=== PATIENT | female | born 1955 | race Caucasian/White ===

== ENCOUNTER → 2016-04-04 | Outpatient (REF) | payer OTHER ==
[2016-04-07 14:08] LABS: D001-IgE D pteronyssinus <0.10 kU/L (Class 0); E001-IgE Cat Epith/Dander < 0.10 kU/L (Class 0); E005-IgE Dog Dander < 0.10 kU/L (Class 0); G002-IgE Bermuda Grass < 0.10 kU/L (Class 0); G008-IgE Kentucky Bluegrass < 0.10 kU/L (Class 0); M001-IgE Penicillium chrysogen < 0.10 kU/L (Class 0); M002 IgE Cladosporium herbaru < 0.10 kU/L (Class 0); M003 IgE Aspergillus fumigatu < 0.10 kU/L (Class 0); M006-IgE Alternaria alternata < 0.10 kU/L (Class 0); T001-IgE Maple/Box Elder < 0.10 kU/L (Class 0); T003-IgE Common Silver Birch < 0.10 kU/L (Class 0); T007-IgE Oak, White < 0.10 kU/L (Class 0); T008-IgE Elm, American < 0.10 kU/L (Class 0); T015-IgE Ash, White < 0.10 kU/L (Class 0); T041-IgE Hickory, White < 0.10 kU/L (Class 0); W001-IgE Ragweed, Short < 0.10 kU/L (Class 0); W009-IgE Plantain, English < 0.10 kU/L (Class 0); W014-IgE Pigweed, Rough < 0.10 kU/L (Class 0); W018-IgE Sheep Sorrel < 0.10 kU/L (Class 0)
== END ==
LOC: M LAB REF 13:13
PROVIDERS: ATTEND Internal Medicine Pulmonary Disease
DX: J45.30 Mild persistent asthma, uncomplicated (principal)

== ENCOUNTER → 2016-04-24 | Outpatient (REF) | payer OTHER ==
[2016-04-24 14:06] LABS: TOTAL PROTEIN 6.8 GM/DL (6.4-8.2); URIC ACID 4.9 MG/DL (2.6-6.0)
[2016-04-25 13:11] LABS: ALBUMIN 3.75 GM/DL (3.29-5.55); ALBUMIN % 55.2 % (55.8-66.1); GAMMA GLOBULIN % 14.6 % (11.1-18.8)
== END ==
LOC: M LABNEURO 13:03
PROVIDERS: ATTEND Psychiatry & Neurology Neurology
DX: M19.90 Unspecified osteoarthritis, unspecified site (principal)

== ENCOUNTER → 2016-05-20 | Outpatient (REF) | payer OTHER ==
[2016-05-20 19:10] LABS: BASO % 0.5 % (0.0-1.0); EOS # 0.4 K/mm3 (0.0-0.50); EOS % 6.6 % (0.0-3.0); LARGE UNSTAINED CELL # 0.1 K/mm3 (0.0-0.4); LARGE UNSTAINED CELL % 1.2 % (0.0-4.0); LYMPH # 1.1 K/mm3 (1.5-4.5); LYMPH % 16.6 % (24.0-44.0); MEAN CORPUSCULAR HEMOGLOBIN 30.4 pg (27.0-33.0); MEAN CORPUSCULAR HGB CONC 32.6 g/dl (32.0-36.5); MEAN CORPUSCULAR VOLUME 93.3 fl (80.0-96.0); MONO # 0.4 K/mm3 (0.0-0.8); MONO % 5.8 % (0.0-5.0); NEUTROPHILS # 4.5 K/mm3 (1.8-7.7); NEUTROPHILS % 69.4 % (36.0-66.0); PLATELET COUNT, AUTOMATED 299 k/mm3 (150-450); RED CELL DISTRIBUTION WIDTH 12.7 % (11.5-14.5); WHITE BLOOD COUNT 6.4 K/mm3 (4.0-10.0)
[2016-05-20 19:16] LABS: ALBUMIN 3.7 GM/DL (3.2-5.2); ALBUMIN/GLOBULIN RATIO 1.23 (1.00-1.93); ALKALINE PHOSPHATASE 106 U/L (45-117); ALT/SGPT 35 U/L (12-78); ANION GAP 8 MEQ/L (8-16); AST/SGOT 29 U/L (15-37); BILIRUBIN,TOTAL 0.4 MG/DL (0.2-1.0); BLOOD UREA NITROGEN 19 MG/DL (7-18); CARBON DIOXIDE LEVEL 28 MEQ/L (21-32); CHLORIDE LEVEL 104 MEQ/L (98-107); CHOLESTEROL LEVEL 187 MG/DL (< 200); CREATININE FOR GFR 0.65 MG/DL (0.55-1.02); GLOMERULAR FILTRATION RATE > 60.0 (>45); GLUCOSE, FASTING 129 MG/DL (80-110); PHOSPHORUS LEVEL 2.9 MG/DL (2.5-4.9); POTASSIUM SERUM 3.8 MEQ/L (3.5-5.1); SODIUM LEVEL 140 MEQ/L (136-145); TOTAL PROTEIN 6.7 GM/DL (6.4-8.2); TRIGLYCERIDES LEVEL 112 MG/DL (<150)
== END ==
LOC: M LABNEURO 17:05
PROVIDERS: ATTEND Psychiatry & Neurology Neurology
DX: M19.90 Unspecified osteoarthritis, unspecified site (principal)

== ENCOUNTER → 2016-05-28 | Outpatient (CLI) | payer OTHER ==
--- NOTE | 2016-05-28 08:20 | PFTRPT ---
PULMONARY FUNCTION REPORT ORDERING PROVIDER: Gilmer Gamble M.D. DATE OF SERVICE: 05/28/16 SPIROMETRY: Pre and post bronchodilator study of excellent technical quality. The forced vital capacity is normal. The FEV1 is generally in proportion. The obstructive index is, therefore, normal. FLOW VOLUME LOOP: The expiratory limb of the flow volume loop is reasonably normal. Minimal bronchodilator response is identified. LUNG VOLUMES: The total lung capacity is mildly elevated. The residual volume raises a question of air trapping. DIFFUSION CAPACITY: The diffusion capacity is elevated. HEMOGLOBIN: No hemoglobin is available. AIRWAY MECHANICS: Airways resistance and conductance are normal. IMPRESSION: Cannot rule out a degree of air trapping. Elevated diffusion capacity. Please correlate clinically. MTDD
== END ==
LOC: M CARPUL 07:42
PROVIDERS: ATTEND Internal Medicine
DX: M05.741 Rheumatoid arthritis with rheumatoid factor of right hand without organ or systems involvement (principal)

== ENCOUNTER → 2016-10-17 | Outpatient (REF) | payer OTHER ==
[2016-10-17 20:01] LABS: ALBUMIN 3.8 GM/DL (3.2-5.2); ALBUMIN/GLOBULIN RATIO 1.31 (1.00-1.93); ALKALINE PHOSPHATASE 85 U/L (45-117); ALT/SGPT 36 U/L (12-78); ANION GAP 7 MEQ/L (8-16); AST/SGOT 27 U/L (15-37); BILIRUBIN,TOTAL 0.6 MG/DL (0.2-1.0); BLOOD UREA NITROGEN 16 MG/DL (7-18); CALCIUM LEVEL 8.9 MG/DL (8.8-10.2); CARBON DIOXIDE LEVEL 27 MEQ/L (21-32); CHLORIDE LEVEL 108 MEQ/L (98-107); CREATININE FOR GFR 0.68 MG/DL (0.55-1.02); GLOMERULAR FILTRATION RATE > 60.0 (>45); GLUCOSE, FASTING 91 MG/DL (80-110); POTASSIUM SERUM 3.9 MEQ/L (3.5-5.1); SODIUM LEVEL 142 MEQ/L (136-145); TOTAL PROTEIN 6.7 GM/DL (6.4-8.2)
[2016-10-17 20:40] LABS: BASO # 0.1 K/mm3 (0.0-0.2); BASO % 1.2 % (0.0-1.0); EOS # 0.4 K/mm3 (0.0-0.50); EOS % 8.3 % (0.0-3.0); LYMPH # 1.1 K/mm3 (1.5-4.5); LYMPH % 19.1 % (24.0-44.0); MEAN CORPUSCULAR HEMOGLOBIN 31.2 pg (27.0-33.0); MEAN CORPUSCULAR HGB CONC 33.4 g/dl (32.0-36.5); MEAN CORPUSCULAR VOLUME 93.4 fl (80.0-96.0); MONO # 0.5 K/mm3 (0.0-0.8); MONO % 8.6 % (0.0-5.0); NEUTROPHILS # 3.3 K/mm3 (1.8-7.7); NEUTROPHILS % 61.5 % (36.0-66.0); RED CELL DISTRIBUTION WIDTH 12.9 % (11.5-14.5); WHITE BLOOD COUNT 5.3 K/mm3 (4.0-10.0)
== END ==
LOC: M LABNEURO 13:00
PROVIDERS: ATTEND Internal Medicine
DX: M05.741 Rheumatoid arthritis with rheumatoid factor of right hand without organ or systems involvement (principal)

== ENCOUNTER → 2018-12-18 | Outpatient (REF) | payer OTHER | LOC: M LAB REF 16:20 | PROVIDERS: ATTEND Nurse Practitioner Adult Health | DX: M05.79 Rheumatoid arthritis with rheumatoid factor of multiple sites without organ or systems involvement (principal) ==

== ENCOUNTER → 2019-12-24 | Outpatient (REF) | payer OTHER | LOC: M LAB REF 16:22 | PROVIDERS: ATTEND Nurse Practitioner Adult Health | DX: M05.79 Rheumatoid arthritis with rheumatoid factor of multiple sites without organ or systems involvement (principal) ==

== ENCOUNTER → 2021-02-28 | Outpatient (REF) | payer OTHER | LOC: M LAB REF 16:17 | PROVIDERS: ATTEND Nurse Practitioner Adult Health | DX: R35.0 Frequency of micturition (principal) ==

== ENCOUNTER → 2022-06-28 | Outpatient (REF) | payer OTHER | LOC: M LAB REF 16:29 | PROVIDERS: ATTEND Nurse Practitioner Adult Health | DX: Z79.899 Other long term (current) drug therapy (principal) ==

== ENCOUNTER → 2022-07-05 | Outpatient (CLI) | payer OTHER, MEDICARE | LOC: M WHC 14:31 | PROVIDERS: ATTEND Nurse Practitioner Adult Health | DX: Z12.31 Encounter for screening mammogram for malignant neoplasm of breast (principal) ==

== ENCOUNTER → 2023-02-06 | Outpatient (REF) | payer OTHER, MEDICARE | LOC: M LAB REF 16:26 | PROVIDERS: ATTEND Nurse Practitioner Family | DX: M05.79 Rheumatoid arthritis with rheumatoid factor of multiple sites without organ or systems involvement (principal) ==

== ENCOUNTER → 2023-03-25 | Outpatient (CLI) | payer OTHER | LOC: M WHC 10:34 | PROVIDERS: ATTEND Internal Medicine | DX: Z13.820 Encounter for screening for osteoporosis (principal) ==

== ENCOUNTER → 2024-11-05 | Outpatient (CLI) | payer MEDICARE | LOC: M WHC 08:02 | PROVIDERS: ATTEND Nurse Practitioner Family | DX: Z12.31 Encounter for screening mammogram for malignant neoplasm of breast (principal); R92.313 Mammographic fatty tissue density, bilateral breasts ==